=== PATIENT | female | born 1990 | race Caucasian/White ===

== ENCOUNTER 2017-10-13 10:41 | Emergency (ER) | payer OTHER ==
[2017-10-13] MEDS: HYDROCODONE/APAP (10/325) TAB PO ×2 (13:27→19:30)
[2017-10-13] MEDS: predniSONE 20 MG TAB PO (14:58)
== END 2017-10-13 19:44 | disposition home or self-care (01) ==
LOC: FTE 10:41
DX: M79.602 Pain in left arm (principal)
CPT/HCPCS: 73030; 73080-LT; 93971; 99284-25